=== PATIENT | female | born 1965 | race Caucasian/White ===

== ENCOUNTER 2017-08-06 09:32 | Emergency (ER) | payer OTHER | END 2017-08-06 10:28 | disposition home or self-care (01) | LOC: FTE 09:32 | DX: R20.2 Paresthesia of skin (principal); E11.9 Type 2 diabetes mellitus without complications | CPT/HCPCS: 99283; Z7502 ==

== ENCOUNTER 2017-12-22 12:07 | Day surgery (SDC) | payer OTHER ==
[2017-12-22] MEDS ORDERED: PROPOFOL 40 ML (16:09)
== END 2017-12-22 17:51 | disposition home or self-care (01) ==
LOC: GIL 12:07
DX: K92.1 Melena (principal); K64.8 Other hemorrhoids; E11.9 Type 2 diabetes mellitus without complications
CPT/HCPCS: 45378; 82962; 88305

== ENCOUNTER 2017-12-23 11:32 | Emergency (ER) | payer OTHER ==
[2017-12-23] MEDS: ONDANSETRON 4 MG INJ IV (13:16)
[2017-12-23] MEDS: morphine 4 MG/ML VIAL IV (13:16)
[2017-12-23] MEDS: SOD CHLORIDE 0.9% 1,000 ML IV (13:17)
[2017-12-23 13:18] LABS: ADD MAN DIFF? NO
[2017-12-23 13:33] LABS: WHITE BLOOD COUNT 8.5 10^3/ul (4.8-10.8)
[2017-12-23 13:33] LABS: BASOPHIL # 0.1 10^3/ul (0.0-0.1); BASOPHILS % 0.6 % (0.0-2.0); EOSINOPHILS # 0.8 10^3/ul (0.0-0.5); EOSINOPHILS % 9.9 % (0.0-7.0); HEMATOCRIT 45.8 % (37.0-47.0); HEMOGLOBIN 16.2 g/dl (12.0-16.0); LYMPHOCYTES # 2.9 10^3/ul (0.8-2.9); LYMPHOCYTES % 33.6 % (15.0-51.0); MEAN CORPUSCULAR HEMOGLOBIN 30.7 pg (29.0-33.0); MEAN CORPUSCULAR HGB CONC 35.4 g/dl (32.0-37.0); MEAN CORPUSCULAR VOLUME 86.7 fl (82.0-101.0); MEAN PLATELET VOLUME 11.3 fl (7.4-10.4); MONOCYTE # 0.5 10^3/ul (0.3-0.9); MONOCYTES % 6.1 % (0.0-11.0); NEUTROPHIL # 4.2 10^3/ul (1.6-7.5); NEUTROPHILS % 49.6 % (39.0-77.0); PLATELET COUNT 323 10^3/UL (140-415); RED BLOOD COUNT 5.28 10^6/ul (4.20-5.40); RED CELL DISTRIBUTION WIDTH 12.1 % (11.5-14.5)
[2017-12-23 13:40] LABS: ADD UMIC YES; UR ASCORBIC ACID NEGATIVE (NEGATIVE); UR BILIRUBIN (Dip) NEGATIVE (NEGATIVE); UR BLOOD (Dip) NEGATIVE (NEGATIVE); UR CLARITY CLEAR (CLEAR); UR COLOR YELLOW (YELLOW); UR GLUCOSE (Dip) NEGATIVE (NEGATIVE); UR KETONES (Dip) NEGATIVE (NEGATIVE); UR LEUKOCYTE ESTERASE (Dip) 2+ Leu/ul (NEGATIVE); UR NITRITE (Dip) NEGATIVE (NEGATIVE); UR RBC 1 /HPF (0-5); UR SPECIFIC GRAVITY (Dip) 1.006 (1.003-1.030); UR SQUAMOUS EPITHELIAL CELL FEW /HPF (FEW); UR TOTAL PROTEIN (Dip) NEGATIVE (NEGATIVE); UR UROBILINOGEN (Dip) NEGATIVE (NEGATIVE); UR WBC 9 /HPF (0-5)
[2017-12-23 13:47] LABS: INR 0.93; PROTIME 12.5 Sec (11.9-14.9)
[2017-12-23 13:48] LABS: PARTIAL THROMBOPLASTIN TIME 32.7 Sec (25.0-35.0)
[2017-12-23 13:51] LABS: ALANINE AMINOTRANSFERASE 23 IU/L (13-69); ALBUMIN 4.5 g/dl (3.3-4.9); ALBUMIN/GLOBULIN RATIO 1.15; ALKALINE PHOSPHATASE 93 IU/L (42-121); AMYLASE 70 U/L (11-123); ANION GAP 14 (8-16); ASPARTATE AMINO TRANSFERASE 34 IU/L (15-46); BILIRUBIN,INDIRECT 0.6 mg/dl (0-1.1); BILIRUBIN,TOTAL 0.6 mg/dl (0.2-1.3); BLOOD UREA NITROGEN 13 mg/dl (7-20); CALCIUM 9.5 mg/dl (8.4-10.2); CARBON DIOXIDE 25 mmol/L (21-31); CHLORIDE 107 mmol/L (97-110); GLUCOSE 112 mg/dl (70-220); LIPASE 166 U/L (23-300); POTASSIUM 4.2 mmol/L (3.5-5.1); SODIUM 142 mmol/L (135-144); TOTAL PROTEIN 8.4 g/dl (6.1-8.1)
[2017-12-23] MEDS: SOD CHLORIDE 0.9% 100 ML (13:53)
[2017-12-23] MEDS: IOHEXOL 300MG/ML 150 ML BTL (13:53)
[2017-12-23 14:02] LABS: TROPONIN-I < 0.012 ng/ml (0.000-0.120)
== END 2017-12-23 14:42 | disposition home or self-care (01) ==
LOC: E/R 11:32
DX: G89.18 Other acute postprocedural pain (principal); E11.9 Type 2 diabetes mellitus without complications; R10.32 Left lower quadrant pain
CPT/HCPCS: 74177; 80053; 81001; 82150; 83690; 84484; 85025; 85610; 85730; 93005; 96374; 96375; 99285-25

== ENCOUNTER 2018-08-25 12:53 | Emergency (ER) | payer OTHER | END 2018-08-25 14:35 | disposition home or self-care (01) | LOC: E/R 12:53 | DX: R09.81 Nasal congestion (principal) | CPT/HCPCS: 99283; Z7502 ==